=== PATIENT | female | born 1965 | race Caucasian/White ===

== ENCOUNTER → 2016-07-02 | Outpatient (CLI) | payer OTHER ==
[~2016-07-02] MED LIST: AMRIX15 MG PO; CLONAZEPAM1 MG PO; KLONOPIN1 MG PO
== END | disposition home or self-care (01) ==
LOC: CDC 15:15
DX: Z01.810 Encounter for preprocedural cardiovascular examination (principal); R00.1 Bradycardia, unspecified
CPT/HCPCS: 93000